=== PATIENT | female | born 1985 | race Caucasian/White ===

== ENCOUNTER 2016-09-15 02:15 | Inpatient (IN) | payer OTHER ==
[2016-09-15 03:10] LABS: Hematocrit 36 % (35-47); Hemoglobin 11.9 g/dl (12.0-16.0); Mean Corpuscular HGB Conc 33 g/dl (31-36); Mean Corpuscular Hemoglobin 29 pg (27-31); Mean Corpuscular Volume 86 fL (80-97); Mean Platelet Volume 11 um3 (7.4-10.4); Red Blood Count 4.15 10^6/ul (4.0-5.4); Red Cell Distribution Width 14 % (10.5-15); White Blood Count 19.3 10^3/ul (3.5-10.8)
[2016-09-15] MEDS ORDERED: OBEPIDURAL* 250 ML ONE (03:14)
[2016-09-15] MEDS ORDERED: fentaNYL* 50 MCG/ML 2 ML VIAL (100 MCG VIAL) ONE ×3 (03:24→09:29)
[2016-09-15] MEDS ORDERED: Famotidine TAB* 20 MG PO PRN (03:50)
[2016-09-15] MEDS ORDERED: Sodium Citrate/Citric Acid* 15 ML UDC PO PRN (03:50)
[2016-09-15] MEDS ORDERED: Phenylephrine IV* 40 MCG/ML 10 ML SYRINGE IV PUSH PRN ×2 (03:50)
[2016-09-15] MEDS ORDERED: Bupivacaine 0.25% SDV* 30 ML ONE (09:28)
[2016-09-15] MEDS ORDERED: Oxytocin in LR* 20 UNITS/1,000 ML BAG IVPB ONE (10:16)
[2016-09-15] MEDS ORDERED: oxyCODONE/Acetamin 5/325 MG* TAB PO PRN (10:40)
[2016-09-15] MEDS ORDERED: Witch Hazel PAD* JAR TOPICAL PRN (10:40)
[2016-09-15] MEDS ORDERED: Dibucaine 1% 28.35 GM TUBE PR PRN (10:40)
[2016-09-15] MEDS ORDERED: Oxytocin in LR* 20 UNITS/1,000 ML BAG IVPB SCH (11:00)
[2016-09-15] MEDS: OBEPIDURAL* 250 ML EPIDURAL SCH ×2 (12:16→12:20)
[2016-09-15] MEDS: Ibuprofen TAB* 600 MG PO PRN ×2 (14:46→20:37)
[2016-09-15] MEDS: Docusate CAP* 100 MG PO SCH ×2 (14:46→20:37)
[2016-09-16] MEDS: Acetaminophen TAB* 325 MG PO PRN ×2 (00:21→09:51)
[2016-09-16] MEDS: Ibuprofen TAB* 600 MG PO PRN (04:10)
[2016-09-16 07:58] VITALS: BP 120/69
[2016-09-16 08:16] LABS: Hematocrit 33 % (35-47); Hemoglobin 10.9 g/dl (12.0-16.0); Mean Corpuscular HGB Conc 34 g/dl (31-36); Mean Corpuscular Hemoglobin 30 pg (27-31); Mean Corpuscular Volume 88 fL (80-97); Mean Platelet Volume 11 um3 (7.4-10.4); Red Blood Count 3.69 10^6/ul (4.0-5.4); Red Cell Distribution Width 15 % (10.5-15); White Blood Count 14.4 10^3/ul (3.5-10.8)
[2016-09-16] MEDS ORDERED: Measles, Mumps,Rubella VACC* 0.5 ML/VIAL SUBCUT ONE (09:00)
[2016-09-16] MEDS ORDERED: Ferrous Gluconate TAB* 324 MG TAB PO SCH (09:00)
[2016-09-16] MEDS: Docusate CAP* 100 MG PO SCH (09:15)
== END 2016-09-16 11:49 | disposition home or self-care (01) | DRG 560 ==
LOC: MCHOBOUT 02:15 → MCHOB 02:49
PROVIDERS: ADMIT Obstetrics & Gynecology; ATTEND Obstetrics & Gynecology
PROC: 10E0XZZ Delivery of Products of Conception, External Approach (ICD-10-PCS; principal; 2016-09-15)
PROC: 10907ZC Drainage of Amniotic Fluid, Therapeutic from Products of Conception, Via Natural or Artificial Opening (ICD-10-PCS; 2016-09-15)
PROC: 4A1HXCZ Monitoring of Products of Conception, Cardiac Rate, External Approach (ICD-10-PCS; 2016-09-15)
DX: O99.334 Smoking (tobacco) complicating childbirth (principal); F17.210 Nicotine dependence, cigarettes, uncomplicated; Z3A.37 37 weeks gestation of pregnancy; Z37.0 Single live birth
CPT/HCPCS: 36415; 85025; 85027; 86850; 86900; 86901; A9270-GY; J3010

== ENCOUNTER 2017-01-29 14:29 | Emergency (ER) | payer OTHER ==
[2017-01-29 14:48] VITALS: BP 133/80
--- NOTE | 2017-01-29 15:06 | ED ---
Throat Pain/Nasal Congestion - HPI Summary HPI Summary: 31F presents with sore throat for a day. She has history of strept. She denies any SOB, chest pain, cough. She denies any fever. she is able to tolerate liquids. She denies any fatigue, abdominal pain, n/v. She denies any ear pain or sinus congestions. She has been taking Tylenol without relief. - History of Current Complaint Chief Complaint: UCRespiratory Time Seen by Provider: 01/29/17 14:49 - Allergies/Home Medications Allergies/Adverse Reactions: Allergies Allergy/AdvReac Type Severity Reaction Status Date / Time No Known Allergies Allergy Verified 01/29/17 14:48 PMH/Surg Hx/FS Hx/Imm Hx Endocrine/Hematology History: Reports: Hx Blood Disorders - low platelets during pregnancies Denies: Hx Diabetes, Hx Thyroid Disease Cardiovascular History: Denies: Hx Hypertension Respiratory History: Denies: Hx Asthma, Hx Chronic Obstructive Pulmonary Disease (COPD) GI History: Reports: Hx Gastroesophageal Reflux Disease - during Denies: Hx Ulcer - Surgical History Surgery Procedure, Year, and Place: wisdom teeth extraction Infectious Disease History: No Infectious Disease History: Denies: Hx Hepatitis, Hx Human Immunodeficiency Virus (HIV), Traveled Outside the [place] in Last 30 Days - Family History Known Family History: Positive: Hypertension - Social History Alcohol Use: None Hx Substance Use: No Substance Use Type: Reports: None Smoking Status (MU): Former Smoker Type: Cigarettes Have You Smoked in the Last Year: Yes Review of Systems Negative: Fever Positive: Sore Throat Negative: Chest Pain Negative: Shortness Of Breath Negative: Abdominal Pain All Other Systems Reviewed And Are Negative: Yes Physical Exam Triage Information Reviewed: Yes Vital Signs On Initial Exam: Initial Vitals Temp Pulse Resp BP Pulse Ox 98.7 F 94 18 133/80 99 01/29/17 14:45 01/29/17 14:45 01/29/17 14:45 01/29/17 14:45 01/29/17 14:45 Vital Signs Reviewed: Yes Appearance: Positive: Well-Appearing Skin: Positive: Warm, Dry Head/Face: Positive: Normal Head/Face Inspection Eyes: Positive: Normal, EOMI, JP, Conjunctiva Clear ENT: Positive: Pharyngeal erythema, TMs normal, Tonsillar swelling, Tonsillar exudate, Other - uvula midline, soft palate symmetric. Negative: Trismus, Muffled/hoarse voice Neck: Positive: Supple, Nontender, No Lymphadenopathy Respiratory/Lung Sounds: Positive: Clear to Auscultation, Breath Sounds Present Cardiovascular: Positive: Normal, RRR Abdomen Description: Positive: Nontender, Soft Bowel Sounds: Positive: Present Diagnostics - Vital Signs Vital Signs Temp Pulse Resp BP Pulse Ox 01/29/17 14:45 98.7 F 94 18 133/80 99 - Laboratory Lab Statement: Any lab studies that have been ordered have been reviewed, and results considered in the medical decision making process. EENT Course/Dx - Course Course Of Treatment: 31F presents with sore throat for a day. She has history of strept. She denies any SOB, chest pain, cough. She denies any fever. she is able to tolerate liquids. She denies any fatigue, abdominal pain, n/v. She denies any ear pain or sinus congestions. She has been taking Tylenol without relief. on exam tonsils +1 erythema and exudate, uvula midline, soft palate symmetric. strept pos. will treat with amoxicillin. reviewed blood pressure and told to follow up with primary as pre-htn range. patient understands and agrees with plan. - Differential Diagnoses Differential Diagnoses: Sinusitis, Tonsilitis, URI/Bronchitis - Diagnoses Provider Diagnoses: Streptococcal sore throat Discharge - Discharge Plan Condition: Good Disposition: HOME Prescriptions: Amoxicillin [Amoxicillin 250 MG/5 ML] 500 mg PO BID #200 ml Patient Education Materials: Strep Throat (ED) Forms: *Work Release Referrals: Loyd Champion MD [Primary Care Provider] - Additional Instructions: Take antibiotic twice a day for 10 days Take Tylenol or ibuprofen for pain/fever every 6 hours Can gargle salt water, use cough drops or products such as cloraseptic spray for pain Return to ED if develop difficulty breathing or unable to manage secretions, any new or worsening symptoms
== END 2017-01-29 15:15 | disposition home or self-care (01) ==
LOC: UCEAST 14:29
DX: J02.0 Streptococcal pharyngitis (principal); Z87.891 Personal history of nicotine dependence
CPT/HCPCS: 87651; 99212; G0463

== ENCOUNTER 2017-03-19 11:47 | Emergency (ER) | payer OTHER ==
[2017-03-19 12:04] VITALS: BP 137/83
--- NOTE | 2017-03-19 12:22 | UC ---
Dizzy HPI HPI Summary: Sensation of room spinning began last night does get nauseated - History Of Current Complaint Chief Complaint: UCDizziness Stated Complaint: DIZZINESS Time Seen by Provider: 03/19/17 12:20 Hx Obtained From: Patient Hx Last Menstrual Period: hasn't had since august - has implanon ?: No Onset/Duration: Sudden Onset, Lasting Days - 1 Timing: Intermittent Episode Lasting - --when she moved her head Severity Initially: Moderate Severity Currently: Moderate Character: Room Spinning Aggravating Factor(s): Change In Head Position Alleviating Factor(s): Rest, Lying Down, Closing Eyes Associated Signs And Symptoms: Positive: Nausea - Allergies/Home Medications Allergies/Adverse Reactions: Allergies Allergy/AdvReac Type Severity Reaction Status Date / Time No Known Allergies Allergy Verified 03/19/17 12:04 Home Medications: Home Medications Acetaminophen [Tylenol] 500 mg PO ONCE PRN 03/19/17 [History Confirmed 03/19/17] Topiramate 50 mg PO DAILY 03/19/17 [History Confirmed 03/19/17] PMH/Surg Hx/FS Hx/Imm Hx Previously Healthy: No Neurological History: Migraine - Surgical History Surgical History: Yes Surgery Procedure, Year, and Place: wisdom teeth extraction - Family History Known Family History: Positive: Hypertension - Social History Occupation: Employed Full-time Lives: With Family Alcohol Use: None Substance Use Type: None Smoking Status (MU): Former Smoker Type: Cigarettes Have You Smoked in the Last Year: Yes - Immunization History Most Recent Influenza Vaccination: unknown Most Recent Tetanus Shot: unknown Most Recent Pneumonia Vaccination: never Review of Systems Constitutional: Negative Skin: Negative Eyes: Negative ENT: Negative Respiratory: Negative Cardiovascular: Negative Gastrointestinal: Negative Genitourinary: Negative Motor: Negative Neurovascular: Negative Musculoskeletal: Negative Neurological: Negative Psychological: Negative Is Patient Immunocompromised?: No All Other Systems Reviewed And Are Negative: Yes Physical Exam Triage Information Reviewed: Yes Appearance: Well-Appearing, No Pain Distress, Well-Nourished Vital Signs: Initial Vital Signs Temp 97.2 F 03/19/17 11:53 Pulse 74 03/19/17 11:53 Resp 16 03/19/17 11:53 BP 137/83 03/19/17 11:53 Pulse Ox 98 03/19/17 11:53 Vital Signs Reviewed: Yes Eye Exam: Normal Eyes: Positive: Conjunctiva Clear ENT Exam: Normal ENT: Positive: Normal ENT inspection, Hearing grossly normal, Pharynx normal, TMs normal, Uvula midline. Negative: Nasal congestion, Nasal drainage, TM bulging, Tonsillar swelling, Tonsillar exudate, Hoarse voice, Dental tenderness , Sinus tenderness Dental Exam: Normal Neck exam: Normal Neck: Positive: Supple, Nontender, No Lymphadenopathy Respiratory Exam: Normal Respiratory: Positive: Chest non-tender, Lungs clear, Normal breath sounds, No respiratory distress, No accessory muscle use, Respiratory distress Cardiovascular Exam: Normal Cardiovascular: Positive: RRR, No Murmur, Pulses Normal, Brisk Capillary Refill Musculoskeletal Exam: Normal Musculoskeletal: Positive: Strength Intact, ROM Intact, No Edema Neurological Exam: Normal Neurological: Positive: Alert, Muscle Tone Normal, Fatigued Psychological Exam: Normal Skin Exam: Normal Dizzy Course/Dx - Course Course Of Treatment: Meclizine, ibuprofen, tylenol, increase fluids and rest follow with pcp - Differential Dx/Diagnosis Differential Diagnosis/HQI/PQRI: Benign Paroxysmal Positional Vertigo Provider Diagnoses: Vertigo (BPPV) Discharge - Discharge Plan Condition: Stable Disposition: HOME Prescriptions: Meclizine TAB* [Antivert 12.5 TAB*] 25 mg PO TID PRN #20 tab PRN Reason: vertigo Patient Education Materials: Vertigo (ED), Benign Paroxysmal Positional Vertigo (ED) Forms: *Work Release Referrals: Demar Jimenez MD [Primary Care Provider] - 1 Day
== END 2017-03-19 12:42 | disposition home or self-care (01) ==
LOC: UCEAST 11:47
DX: R42 Dizziness and giddiness (principal); Z87.891 Personal history of nicotine dependence
CPT/HCPCS: 99212; G0463

== ENCOUNTER 2018-03-28 07:22 | Inpatient (IN) | payer OTHER ==
[~2018-03-28 07:22] MED LIST: Buffered Lidocaine 0.9% SYRIN* 5 ML/SYR SYRINGE INTRADERM ONE; Dexamethasone IV* 4 MG/ML 1 ML (4 MG) IV SLOW PU ONE; Famotidine IV* 10 MG/ML 2 ML (20 mg) IV ONE; Scopolamine 1.5 mg* PATCH TRANSDERM ONE
--- OUTSIDE RECORDS SUMMARY | 2018-03-28 07:26 | XMS REPORT | Continuity of Care Document ---
:1985 External Reference #:[id number] Author Name Edilson Casey N.P. Address [address] [facility] [address] [place] [address] Care Team Providers Name Role Phone Demar Jimenez MD Care Team Information Imagery Analyst Unavailable Payers Type Date Identification Numbers Payment Provider Subscriber Policy Number: [id number] [facility] Sascha Nance PayID: [id number] [place] [address] Policy Number: [id number] Medicaid/[facility] Sascha Nance PayID: [id number] [address] [place] [address] Advance Directives Description No Information Available Problems Date Description Provider Status Onset: 08/07/2011 Refractory migraine with aura Demar Jimenez M.D. Active Onset: 08/07/2011 Headache Demar Jimenez M.D. Active Onset: 08/07/2011 Allergic rhinitis Demar Jimenez M.D. Active Onset: 08/07/2011 Malaise and fatigue Demar Jimenez M.D. Active Onset: 08/07/2011 Dizziness and giddiness Demar Jimenez M.D. Active Onset: 08/07/2011 Anxiety state Demar Jimenez M.D. Active Onset: 08/07/2011 Tobacco user Demar Jimenez M.D. Active Onset: 04/13/2012 Depressive disorder Demar Jimenez M.D. Active Onset: 11/18/2015 Obesity White, [place] [employer] Active Family History Date Family Member(s) Problem(s) Comments Father 52 Father Unknown Mother hypoglycemic Mother 50 Children 3 Siblings 1 Social History Type Date Description Comments Sex Unknown Marital Status Legal Status: Never ETOH Use Denies alcohol use Tobacco Use Start: Unknown Patient is a current less than a half a pack smoker, smokes every day Smoking Status Reviewed: 01/26/18 Patient is a current less than a half a pack smoker, smokes every day Allergies, Adverse Reactions, Alerts Date Description Reaction Status Severity Comments 02/26/2013 Ritalin Active 08/05/2011 NKDA Inactive Medications Medication Date Status Form Strength Qnty SIG Indications Ordering Provider Amoxicillin/C 03/19 Hx Tablets 875-125mg 30tab 1 tab by mouth J02.9 Tony, lavulanate s twice a day Ankit Poe - Ivy 04/02 Mucinex 03/19 Active Tablets ER 600mg 30tab 1 tab by mouth J02.9 Tony, 12HR s twice a day Demar Baird M.D. Benzonatate 03/19 Active Capsules 100mg 60cap 1 cap by mouth J02.9 Tony, s every 4 Demar Baird, hoursAT Night Bethanie.Aron Claritin 01/26 Active Capsules 10mg 30cap 1 by mouth Tony, s every day Demar Baird M.D. Azithromycin 01/26 Active Tablets 250mg 6tabs z bienvenido uad J02.9 Tony, Demar Baird M.D. Splint Wrist 10/03 Active Misc 1unit use as S63.501A Tony Brace/Left-Ri s directed Demar Baird ght/Reversibl Ivy e Ibuprofen 05/17 Active Tablets 800mg 90tab 1 by mouth M54.5 Tony, s three times a Demar Baird, day as needed Ivy Nexplanon 05/03 Active Implant 68mg use as Z30.40 Tony, directed by Demar Baird resident associate q3 M.DYeimy years Topiramate 12/01 Active Tablets 100mg 60tab tab one by G43.119 Tony, s mouth twice a Demar Baird, day M.D. Prednisone 10/03 Hx Tablets 20mg 18tab 3 tab by mouth S63.501A Tony, s daily 3 days, Demar Baird, - then 2 tab M.D. 10/12 daily x 3 d , then 1 tab daily 3d Prednisone 05/17 Hx Tablets 20mg 18tab 3 tab by mouth M54.5 Tony, s daily 3 days, Demar Baird, - then 2 tab M.D. 05/27 daily x 3 d , then 1 tab daily 3d Amoxicillin 05/03 Hx Suspension 400mg/5ML 200ml 7.5 J02.9 Tony Rec milliliters by Demar Baird, - mouth three M.D. 05/03 times a day Hydrocodone-A 05/03 Hx Tablets 10-325mg 60tab 1 tab by mouth J02.9 Tony, cet s three times a Demar Baird, - day as needed M.D. 05/13 Amoxicillin 05/03 Hx Chewtabs 250mg 4 tab by mouth J02.9 Tony, twice a day Demar Baird - M.D. 05/03 Amoxicillin 05/03 Hx Chewtabs 250mg 4 tab by mouth J02.9 Tony, twice a day Demar Baird - M.D. 05/13 Prednisone 01/30 Hx Tablets 20mg 18tab 3 tab by mouth J35.1 Tony, s daily 3 days, Demar Baird, - then 2 tab M.D. 02/17 daily x 3 d , then 1 tab daily 3d Solumedrol 01/30 Hx 125 Given Im Right J35.1 Tony, Gluteal Demar Baird - M.D. 01/31 Ceftriaxone 01/30 Hx Solution 1gm given J02.0 Tony, Rec intramuscular Demar Baird, - left gluteal M.D. 01/31 Topiramate 10/06 Hx Tablets 25mg 60tab take one G43.119 Tony s tablet by Demar Baird, - mouth at M.D. 12/01 bedtime week then by mouth twice a day Nicotine Step 10/06 Hx Patches 14mg/24HR 30uni 1 skin every F17.210 Tony, 24HR day Kellee Poe M.D. 05/01 Depo-Provera 10/05 Hx Suspension 150mg/ml 1ml 1 milliliters Z30.40 Tony injection Demar Baird - a1onpmcv M.DYeimy 05/01 No Active 02/24 Hx Unknown Medications /2015 - 02/24 /Omeg 02/24 Hx Capsules 28-0.8-53 90cap 1 by mouth Z33.1 Tony, a- 0mg s every day Demar Baird Acid/Iron - Ivy 09/29 Phentermine 11/17 Hx Capsules 30mg 30cap 1 by mouth E66.01 Tony, s every day Kellee Poe M.D. 02/24 F90.0 Topiramate 02/26/2013 - Hx Tablets 25mg 60tabs take one G43.119 Tony, 02/25/2016 tablet by sunil Poe at M.DYeimy bedtime x1 week then by mouth twice a day Amoxicillin 04/13/2012 - Hx Capsules 500mg 30caps 1 three 682.9 Tony, 04/23/2012 times a day Demar Baird, x 10 days M.DYeimy Concerta 12/14/2011 - Hx Tablets ER 54mg 30tabs 1 by mouth Tony, 04/13/2012 every day Demar Baird M.D. Adderall 12/13/2011 - Hx Tablets 20mg 60tabs 1 po bid Tony, 12/14/2011 Demar Baird M.D. Nicoderm CQ 12/13/2011 - Hx Patches 24HR 21mg/24 21units use as Tony, 04/13/2012 HR directed Demar Baird M.D. Amoxicillin - Hx Tablets 500mg 1 Two times J02.0 Unknown 02/08/2017 a day x10 day Per [facility] Care Medications Administered in Office Medication Date Status Form Strength Qnty SIG Indications Ordering Provider Intradermal Administered Injection Edilson Joyyaquelin 018 Casey, N.P. Solu-Medrol Administered Injection White, 125MG 017 [place] [employer] Rocephin 250 Administered Injection White, 017 [place] [employer] Intradermal Administered Injection White, Mantoux 017 [place] GENTILEP Immunizations CPT Code Status Date Vaccine Lot # [id number] Given 01/24/2018 Flu Vaccine [id number] Given 04/19/2017 Flu Vaccine [id number] Given 04/13/2012 Flu Vaccine [id number] Given 04/14/2011 Flu Vaccine Vital Signs Date Vital Result Comment 03/19/2018 1:14pm BP Systolic 110 mmHg BP Diastolic 70 mmHg Height 66 inches 5'6" Weight 276.00 lb BMI (Body Mass Index) 44.5 kg/m2 Heart Rate 95 /min Body Temperature 98.7 F Respiratory Rate 16 /min 01/26/2018 4:33pm BP Systolic 110 mmHg BP Diastolic 68 mmHg Height 66 inches 5'6" Weight 278.00 lb BMI (Body Mass Index) 44.9 kg/m2 Heart Rate 88 /min Body Temperature 98.6 F Respiratory Rate 18 /min 01/24/2018 2:11pm BP Systolic 116 mmHg BP Diastolic 72 mmHg Height 66 inches 5'6" Weight 278.00 lb BMI (Body Mass Index) 44.9 kg/m2 10/03/2017 4:08pm BP Systolic 110 mmHg BP Diastolic 74 mmHg Height 66 inches 5'6" Weight 269.00 lb BMI (Body Mass Index) 43.4 kg/m2 Heart Rate 59 /min Respiratory Rate 18 /min 09/06/2017 10:37am BP Systolic 110 mmHg BP Diastolic 64 mmHg Height 66 inches 5'6" Weight 268.00 lb BMI (Body Mass Index) 43.3 kg/m2 Heart Rate 82 /min Respiratory Rate 18 /min 05/17/2017 3:04pm BP Systolic 110 mmHg BP Diastolic 82 mmHg Height 66 inches 5'6" Weight 258.00 lb BMI (Body Mass Index) 41.6 kg/m2 Heart Rate 77 /min Respiratory Rate 18 /min 05/03/2017 2:40pm BP Systolic 110 mmHg BP Diastolic 72 mmHg Height 66 inches 5'6" Weight 259.00 lb BMI (Body Mass Index) 41.8 kg/m2 Heart Rate 76 /min Respiratory Rate 18 /min 02/01/2017 9:50am BP Systolic 108 mmHg BP Diastolic 62 mmHg Height 66 inches 5'6" Weight 253.00 lb BMI (Body Mass Index) 40.8 kg/m2 Heart Rate 78 /min Body Temperature 98.2 F Respiratory Rate 18 /min 01/30/2017 10:17am BP Systolic 118 mmHg BP Diastolic 70 mmHg Height 66 inches 5'6" Weight 253.00 lb BMI (Body Mass Index) 40.8 kg/m2 Heart Rate 99 /min Body Temperature 99.1 F Respiratory Rate 18 /min 12/07/2016 4:24pm BP Systolic 118 mmHg BP Diastolic 78 mmHg Height 66 inches 5'6" Weight 245.00 lb BMI (Body Mass Index) 39.5 kg/m2 Heart Rate 80 /min Respiratory Rate 16 /min 12/05/2016 4:15pm BP Systolic 108 mmHg BP Diastolic 70 mmHg Height 66 inches 5'6" Weight 245.00 lb BMI (Body Mass Index) 39.5 kg/m2 Heart Rate 79 /min Respiratory Rate 18 /min 12/01/2016 3:25pm BP Systolic 114 mmHg BP Diastolic 60 mmHg Height 66 inches 5'6" Weight 245.00 lb BMI (Body Mass Index) 39.5 kg/m2 Heart Rate 79 /min Respiratory Rate 16 /min 10/06/2016 2:57pm BP Systolic 100 mmHg BP Diastolic 62 mmHg Height 66 inches 5'6" Weight 241.00 lb BMI (Body Mass Index) 38.9 kg/m2 Heart Rate 99 /min Respiratory Rate 16 /min 02/25/2016 4:25pm BP Systolic 134 mmHg BP Diastolic 68 mmHg Height 66 inches 5'6" Weight 257.00 lb BMI (Body Mass Index) 41.5 kg/m2 Heart Rate 74 /min Respiratory Rate 20 /min 12/16/2015 3:59pm BP Systolic 130 mmHg BP Diastolic 72 mmHg Height 66 inches 5'6" Weight 258.00 lb BMI (Body Mass Index) 41.6 kg/m2 Heart Rate 78 /min Respiratory Rate 20 /min 12/02/2015 3:56pm BP Systolic 126 mmHg BP Diastolic 72 mmHg Height 66 inches 5'6" Weight 263.00 lb BMI (Body Mass Index) 42.4 kg/m2 Heart Rate 78 /min Respiratory Rate 20 /min 11/18/2015 3:57pm BP Systolic 122 mmHg BP Diastolic 74 mmHg Height 66 inches 5'6" Weight 267.00 lb BMI (Body Mass Index) 43.1 kg/m2 Heart Rate 76 /min Respiratory Rate 20 /min 03/13/2013 11:12am BP Systolic 118 mmHg BP Diastolic 78 mmHg Height 66 inches 5'6" Weight 230.00 lb BMI (Body Mass Index) 37.1 kg/m2 Heart Rate 93 /min Respiratory Rate 18 /min 02/26/2013 1:56pm BP Systolic 114 mmHg BP Diastolic 84 mmHg Height 66 inches 5'6" Weight 230.00 lb BMI (Body Mass Index) 37.1 kg/m2 Heart Rate 86 /min Body Temperature 97.7 F Respiratory Rate 20 /min 04/13/2012 11:39am BP Systolic 110 mmHg BP Diastolic 84 mmHg Height 66 inches 5'6" Weight 240.00 lb BMI (Body Mass Index) 38.7 kg/m2 Heart Rate 81 /min Respiratory Rate 16 /min 12/13/2011 10:12am BP Systolic 155 mmHg BP Diastolic 67 mmHg Height 66 inches 5'6" Weight 227.00 lb BMI (Body Mass Index) 36.6 kg/m2 Heart Rate 87 /min Last Menstrual Period 0 Respiratory Rate 14 /min Results Test Date Facility Test Result H/L Range Note Laboratory test 10/25/2017 [facility] Clotest SEE RESULT 1 finding BELOW Laboratory test 10/25/2017 [facility] Surgical SEE RESULT 2 finding Pathology BELOW Rubeola Measles 12/01/2016 [facility] Rubeola Positive 3 Igg AB (Measles) IgG Antibody Rubeola IgG Antibody Index 2.3 4 Laboratory test 12/01/2016 [facility] Rubella Screen Equivocal IU/mL Immune 5 finding Mumps Igg 12/01/2016 [facility] Mumps Virus IgG Positive 6 Antibody Mumps IgG Antibody Index 1.9 7 Hepatitis B Wang 12/01/2016 [facility] Hepatitis B Reactive Nonreactive AB Titer Surface AB Hep B Surf AB Level 39.12 mIU/mL <12 8 Varicella Zoster 12/01/2016 [facility] Varicella-Zoster IgG Positive 9 Igg AB Antibody Varicella IgG Antibody Index 4.0 10 CBC Auto Diff 12/01/2016 [facility] White Blood Count 6.9 10^3/uL 3.5-10.8 Red Blood Count 4.75 10^6/uL 4.0-5.4 Hemoglobin 13.6 g/dL 12.0-16.0 Hematocrit 42 % 35-47 Mean Corpuscular Volume 88 fL 80-97 Mean Corpuscular Hemoglobin 29 pg 27-31 Mean Corpuscular HGB Conc 33 g/dL 31-36 Red Cell Distribution Width 15 % 10.5-15 Platelet Count 158 10^3/uL 150-450 Mean Platelet Volume 10 um3 7.4-10.4 Abs Neutrophils 3.7 10^3/uL 1.5-7.7 Abs Lymphocytes 2.7 10^3/uL 1.0-4.8 Abs Monocytes 0.3 10^3/uL 0-0.8 Abs Eosinophils 0.1 10^3/uL 0-0.6 Abs Basophils 0.1 10^3/uL 0-0.2 Abs Nucleated RBC 0.01 10^3/uL Granulocyte % 53.7 % 38-83 Lymphocyte % 39.9 % 25-47 Monocyte % 4.8 % 1-9 Eosinophil % 0.8 % 0-6 Basophil % 0.8 % 0-2 Nucleated Red Blood Cells % 0.1 Comp Metabolic Panel 12/01/2016 [facility] Sodium 138 mmol/L 133- 145 Potassium 3.6 mmol/L 3.5-5.0 Chloride 110 mmol/L 101-111 Co2 Carbon Dioxide 21 mmol/L Low 22-32 Anion Gap 7 mmol/L 2-11 Glucose 78 mg/dL 70-100 Blood Urea Nitrogen 12 mg/dL 6-24 Creatinine 0.99 mg/dL High 0.51-0.95 BUN/Creatinine Ratio 12.1 8-20 Calcium 9.4 mg/dL 8.6-10.3 Total Protein 6.8 g/dL 6.4-8.9 Albumin 4.0 g/dL 3.2-5.2 Globulin 2.8 g/dL 2-4 Albumin/Globulin Ratio 1.4 1-3 Total Bilirubin 0.40 mg/dL 0.2-1.0 Alkaline Phosphatase 44 U/L 34-104 Alt 16 U/L 7-52 Ast 17 U/L 13-39 Egfr Non- 65.0 >60 Egfr 83.6 >60 11 Laboratory test 12/01/2016 [facility] TSH (Thyroid 1.23 mcIU/mL 0.34 -5.60 12 finding Stim Horm) Hemoglobin A1c (Glyco HGB) 5.1 % Less than 6.0 13 Lipid Profile (Trig/Chol/HDL) 12/01/2016 [facility] Triglycerides 93 mg /dL 14 Cholesterol 159 mg/dL 15 HDL Cholesterol 40.9 mg/dL 16 LDL Cholesterol 100 mg/dL 17 CMP 11/18/2015 [facility] Sodium 145 mmol/L (136-145) [address] KA[address] STEWART (607)- - Potassium 3.6 mmol/L (3.6-5.2) Chloride 111 mmol/L High (100-108) Co2 25 mmol/L (22-31) Anion Gap 9 mmol/L (7-16) Urea Nitrogen 9 mg/dL (7-24) Creatinine 0.83 mg/dL (0.60-1.00) BUN/Creat Ratio 10.8 RATIO (10.0-20.0) Glucose 104 mg/dL High (70-99) Calcium 8.7 mg/dL (8.4-10.2) Total Protein 7.3 g/dL (6.4-8.2) Albumin 3.8 g/dL (3.5-4.6) Globulin 3.5 g/dL (2.7-4.3) Alb/Glob Ratio 1.1 RATIO Alkaline Phosphatase 72 U/L (45-117) Bilirubin,Total 0.3 mg/dL (0.0-1.0) Ast (Sgot) 12 U/L (11-39) Alt (SGPT) 23 U/L (12-78) GFR >60 ml/min/1.73m2 (>59) GFR ( Amer) >60 ml/min/1.73m2 (>59) GFR Interpretation <SEE NOTE> 18 CBC With Diff 11/18/2015 [facility] WBC 6.1 10*3/uL (4.1-11.0) 113 KAIA TERRY (607)- - RBC 5.35 10*6/uL (4.00-5.40) HGB 14.9 g/dL (12.0-16.0) HCT 45.9 % (36.0-47.0) MCV 85.8 fL (80.0-95.0) MCH 27.8 pg (27.0-32.0) MCHC 32.4 g/dL (32.0-36.0) RDW 13.9 % (10.5-14.5) PLT 145 10*3/uL Low (150-450) MPV 10.8 fL High (7.1-10.7) Neut % 50.6 % (35.0-75.0) Lymph % 43.1 % (16.0-52.0) [place] % 5.3 % (0.0-8.0) Eos % 0.9 % (0.0-5.0) Baso % 0.1 % (0.0-4.0) Neut # 3.1 10*3/uL (1.8-7.7) Lymph # 2.6 10*3/uL (1.2-4.8) [place] # 0.3 10*3/uL (0.0-0.8) Eos # 0.1 10*3/uL (0.0-0.5) Baso # 0.0 10*3/uL (0.0-0.2) Laboratory 11/18/2015 [facility] TSH,Ultrasensitive @ 0.911 (0.360- 4.170) test finding 113 IN[employer]OV[facility] TERRY mIU/L (607)- - Basic 03/13/2013 [facility] Glucose 76 mg/dL 76-115 Metabolic Panel BUN 11 mg/dL 5-23 Creatinine 0.9 mg/dL 0.5-1.4 Glom Filtration Rate, Estimate >60 mL/min >60 If >60 mL/min >60 19 BUN/Creat 12.2 ratio Sodium 138 mmol/L 136-145 Potassium 3.9 mmol/L 3.5-5.1 Chloride 104 mmol/L 98-107 Carbon Dioxide 25 mEq/L 18-29 Anion Gap 13 mEq/L 8-16 Calcium 8.8 mg/dL 8.5-10.1 CBC W/Automated Diff 03/13/2013 [facility] White Blood Count 8.6 K/uL 3.1- 10.7 Red Blood Count 4.92 M/uL 3.90-5.40 Hemoglobin 15.2 gm/dL 11.6-15.8 Hematocrit 45.6 % 36.0-46.1 Mean Cell Volume 92.7 fl 80.9-99.0 Mean Corpuscular HGB 30.9 pg 25.9-32.7 Mean Corpuscular HGB Conc 33.3 g/dL 30.8-34.3 Platelet Count 145 K/uL Low 155-360 Red Cell Distri Width SD 42.4 fl 3-47 Red Cell Distri Width %CV 12.8 % 11.7-14.4 Mean Platelet Volume 13.5 fL High 8.9-12.4 Neut% 62.0 % 40.4-72.8 Lymph % 31.2 % 17.0-46.1 [place] % 5.8 % 4.3-13.2 Eo% 0.8 % 0.0-6.6 Bas% 0.2 % 0.0-1.1 Neut# 5.33 K/uL 1.0-7.0 Lymph # 2.69 K/uL 0.8-3.4 [place] # 0.50 K/uL 0.3-0.9 Eos # 0.07 K/uL 0.0-0.5 Baso # 0.02 K/uL 0.0-0.1 Laboratory test 03/13/2013 [facility] C-Reactive 5.07 mg/L High 0.00-3.00 20 finding Protein,Cardiac Sedimentation Rate 3 mm/hr 0-20 LDL Cholesterol Profile 03/13/2013 [facility] Cholesterol 145 mg/dL 120- 200 Triglycerides 65 mg/dL 16-231 HDL Cholesterol 42 mg/dL 29-83 LDL-Cholesterol 90 mg/dL 62-185 Liver Function Tests 03/13/2013 [facility] Total Protein 7.5 g/dL 6.3-8.0 Albumin 4.0 g/dL 3.5-5.0 Globulin 3.5 g/dL 1.9-4.3 Alb/Glob 1.1 ratio Bilirubin,Total 0.5 mg/dL 0.2-1.2 Bilirubin,Direct < 0.1 mg/dL Low 0.1-0.4 Bilirubin,Indirect 0.4 mg/dL 0.0-0.9 Sgot/Ast 10 U/L Low 16-40 SGPT/Alt 21 U/L Low 30-65 Alkaline Phosphatase 73 U/L 50-136 Laboratory test 03/13/2013 [facility] Thyroid Stim 1.13 uIU/mL 0.49-4.67 finding Hormone Vitamin D,25-Hydroxy 26.4 ng/mL Low 30.0-100.0 21 1 SEE RESULT BELOW Name: SASCHA NANCE : [address]: Robert Garcia MD Acct: [id number] Unit: [id number] AGE: 32 Location: ENDO Re10/25/17 SEX: F Status: REG REF SPEC: [id number] [place]: 10/25/17-[address] [facility] [address]: Robert Garcia MD REQ: [id number] RECD: 10/25/17123 STATUS: LALA MELENDREZ DR: Demar Jimenez MD _ SOURCE: GAS ANTRUM SPDESC: ORDERED: Clotest Procedure Result Reported Site Clotest Final 10/25/17- 1300 ML Clotest Positive * ML - Main Lab . END OF REPORT DEPARTMENT OF PATHOLOGY, [address] [place] [address] Brody Fabian M.D. Director [facility] # [id number] 2 SEE RESULT BELOW Name: SASCHA NANCE : [address]: Robert Garcia MD Acct: [id number] Unit: [id number] AGE: 32 Location: ENDO Re10/25/17 SEX: F Status: REG REF SPEC: [id number] [place]: 10/25/1735 [facility] [address]: Robert Garcia MD REQ: [id number] RECD: 10/25/17114 STATUS: WILDA MELENDREZ DR: Demar Garcia MD _ ORDERED: LEVEL 4, IMMUNO-FIRST An H. pylori immunohistochemical stain, with appropriately reacting controls , was performed and is POSITIVE for Helicobacter organisms. Addendum Signed (signature on file) Nury Cruz MD 1349 FINAL DIAGNOSIS Stomach, greater curvature, biopsy: -- Gastric oxyntic gland mucosa with mild to moderate diffuse superficial chronic inflammation. -- No active gastritis nor Helicobacter pylori-like organisms identified on H E microscopy. Comment: An immunohistochemical stain for Helicobacter pylori-like organisms is pending and will be reported in an addendum. CLINICAL HISTORY Prebariatric; no dyspepsia; no peptic meds POST-OPERATIVE DIAGNOSIS EGD: larynx ? normal, small; esophagus ? esophagogastric junction 37-37.5 cm , small sliding hiatal hernia, minimal erosion; stomach ? normal, reticulated body, fundus and cardia ? normal; duodenum ? normal; conclusion: small hiatal hernia; mild gastroesophageal reflux disease; gastritis GROSS DESCRIPTION The specimen is received in formalin labeled, Biopsy Gastric Greater Curvature, and consists of two koehler-pink irregular soft tissue fragments averaging 0.6 x 0.2 x 0.1 cm which are submitted entirely in one cassette. CONTINUED ON NEXT PAGE DEPARTMENT OF PATHOLOGY, [address] [place] [address] Brody Fabian M.D. Director [facility] # [id number] RUN DATE: 10/27/17 [facility] LAB LIVE PAGE 2 Patient: SASCHA NANCE [id number] (Continued) GROSS JESSICA (Continued) Signed by and Reported on: Brody Fabian MD 1158 END OF REPORT DEPARTMENT OF PATHOLOGY, [address] [place] [address] Brody Fabian M.D. Director [facility] # [id number] 3 Results suggest response to immunization or prior exposure to the virus. REFERENCE VALUE Vaccinated: Positive (>=1.1 AI) Unvaccinated: Negative (<=0.8 AI) 4 Test Performed by: [address] [id number] 5 [id number] Results suggest response to immunization or prior exposure to the virus. REFERENCE VALUE Vaccinated: Positive (>=1.1 AI) Unvaccinated: Negative (<=0.8 AI) 7 Test Performed by: [facility] - [address] [address] 8 This assay does not differentiate between reactivity due to a vaccine-induced immune response or an immune response induced by infection with HBV. 9 Results suggest response to immunization or prior exposure to the virus. REFERENCE VALUE Vaccinated: Positive (>=1.1 AI) Unvaccinated: Negative (<=0.8 AI) 10 Test Performed by: [facility] - [address] [address] 11 Because ethnic data is not always readily available, this report includes an eGFR for both -Americans and non- Americans. The National Kidney Disease Education Program (NKDEP) does not endorse the use of the MDRD equation for patients that are not between the ages of 18 and 70, are , have extremes of body size, muscle mass, or nutritional status, or are non- or non-. According to the National Kidney Foundation, irrespective of diagnosis, the stage of the disease is based on the level of kidney function: Stage Description GFR(mL/min/1.73 m(2)) 1 Kidney damage with normal or decreased GFR 90 2 Kidney damage with mild decrease in GFR 60-89 3 Moderate decrease in GFR 30-59 4 Severe decrease in GFR 15-29 5 Kidney failure <15 (or dialysis) 12 [id number] 13 Therapeutic target for the treatment of diabetes Mellitus patients is <7% HBA1C, and in selective patients <6.0%.Please refer to [place] [employer] Association Diabetic care guidelines for further information. 14 Desirable <150 Borderline high 150-199 High 200-499 Very High >500 15 Desirable <200 Borderline high 200-239 High >239 16 Low <40 Desirable: 40-60 High: >60 17 Desirable: <100 mg/dL Near Optimal: 100-129 mg/dL Borderline High: 130-159 mg/dL High: 160-189 mg/dL Very High: >189 mg/dL 18 NORMAL KIDNEY FUNCTION OR MILD DISEASE - GFR >OR=60 CHRONIC KIDNEY DISEASE - GFR 15 - 59 RENAL FAILURE - GFR <15 Est. GFR calculation based on the MDRD study equation, which assumes a steady state for creatinine. Est. GFR should not be used for medication dosing. 19 Note: Persistent reduction for 3 months or more in an eGFR <60 mL/min/1.73 m2 defines CKD. Patients with eGFR values >/=60 mL/min/1.73 m2 may also have CKD if evidence of persistent proteinuria is present. The original MDRD equation for estimated GFR is not valid for patients less than 18 years of age. Additional information may be found at www.kdoqi.org. 20 Relative Risk for Future Cardiovascular Event Low <1.00 Average 1.00 - 3.00 High >3.00 21 Vitamin D deficiency has been defined by the [place] of [employer] and an Endocrine Society practice guideline as a level of serum 25-OH vitamin D less than 20 ng/mL (1,2). The Endocrine Society went on to further define vitamin D insufficiency as a level between 21 and 29 ng/mL (2). 1. IOM ([place] of [employer]). 2010. Dietary reference intakes for calcium and D. [place]: The National Academies Press. 2. Mark MF, Kathy NC, Marquis PARKER, et al. Evaluation, treatment, and prevention of vitamin D deficiency: an Endocrine Society clinical practice guideline. JCEM. 2010; 96(7):1911-30. 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, predom inattentive type L20.9 Atopic dermatitis, unspecified J30.9 Allergic rhinitis, unspecified F17.210 Nicotine dependence, cigarettes, uncomplicated J44.9 Chronic obstructive pulmonary disease, unspecified G43.119 Migraine with aura, intractable, without status migrainosus J35.3 Hypertrophy of tonsils with hypertrophy of adenoids M54.5 Low back pain M25.531 Pain in right wrist H66.93 Otitis media, unspecified, bilateral J02.9 Acute pharyngitis, unspecified F41.9 Anxiety disorder, unspecified F33.9 Major depressive disorder, recurrent, unspecified Office Visit 01/26/2018 4:00p [facility] Edilson Casey, Z11.1 Encounter for N.P. screening for respiratory tuberculosis F41.9 Anxiety disorder, unspecified F33.9 Major depressive disorder, recurrent, unspecified F90.0 Attn-defct hyperactivity disorder, predom inattentive type L20.9 Atopic dermatitis, unspecified J30.9 Allergic rhinitis, unspecified F17.210 Nicotine dependence, cigarettes, uncomplicated J44.9 Chronic obstructive pulmonary disease, unspecified G43.119 Migraine with aura, intractable, without status migrainosus J35.3 Hypertrophy of tonsils with hypertrophy of adenoids M54.5 Low back pain M25.531 Pain in right wrist H66.93 Otitis media, unspecified, bilateral J02.9 Acute pharyngitis, unspecified Office Visit 01/24/2018 2:15p [facility] Edilson Casey, F41.9 Anxiety disorder, N.P. unspecified F33.9 Major depressive disorder, recurrent, unspecified F90.0 Attn-defct hyperactivity disorder, predom inattentive type L20.9 Atopic dermatitis, unspecified J30.9 Allergic rhinitis, unspecified F17.210 Nicotine dependence, cigarettes, uncomplicated J44.9 Chronic obstructive pulmonary disease, unspecified G43.119 Migraine with aura, intractable, without status migrainosus Z30.40 Encounter for surveillance of contraceptives, unspecified J35.3 Hypertrophy of tonsils with hypertrophy of adenoids M54.5 Low back pain M25.531 Pain in right wrist S63.501A Unspecified sprain of right wrist, initial encounter Z00.01 Encounter for general adult medical exam w abnormal findings Z23 Encounter for immunization Z11.1 Encounter for screening for respiratory tuberculosis Z68.41 Body mass index (BMI) 40.0-44.9, adult Office Visit 10/03/2017 4:00p [facility] Demar Jimenez1.Medardo Anxiety disorderBrie M.D. unspecified F33.9 Major depressive disorder, recurrent, unspecified F90.0 Attn-defct hyperactivity disorder, predom inattentive type L20.9 Atopic dermatitis, unspecified J30.9 Allergic rhinitis, unspecified F17.210 Nicotine dependence, cigarettes, uncomplicated J44.9 Chronic obstructive pulmonary disease, unspecified G43.119 Migraine with aura, intractable, without status migrainosus Z30.40 Encounter for surveillance of contraceptives, unspecified J35.3 Hypertrophy of tonsils with hypertrophy of adenoids M54.5 Low back pain M25.531 Pain in right wrist S63.501A Unspecified sprain of right wrist, initial encounter Z68.41 Body mass index (BMI) 40.0-44.9, adult Office Visit 09/06/2017 10:30a [facility] Demar Jimenez F41.Medardo Anxiety disorderBrie M.D. unspecified F33.9 Major depressive disorder, recurrent, unspecified F90.0 Attn-defct hyperactivity disorder, predom inattentive type L20.9 Atopic dermatitis, unspecified J30.9 Allergic rhinitis, unspecified F17.210 Nicotine dependence, cigarettes, uncomplicated J44.9 Chronic obstructive pulmonary disease, unspecified G43.119 Migraine with aura, intractable, without status migrainosus Z30.40 Encounter for surveillance of contraceptives, unspecified J35.3 Hypertrophy of tonsils with hypertrophy of adenoids M54.5 Low back pain Z68.41 Body mass index (BMI) 40.0-44.9, adult Office Visit 05/17/2017 3:15p [facility] Demar Jimenez F41.Medardo Anxiety Brie brown M.D. unspecified F33.9 Major depressive disorder, recurrent, unspecified F90.0 Attn-defct hyperactivity disorder, predom inattentive type L20.9 Atopic dermatitis, unspecified J30.9 Allergic rhinitis, unspecified F17.210 Nicotine dependence, cigarettes, uncomplicated J44.9 Chronic obstructive pulmonary disease, unspecified G43.119 Migraine with aura, intractable, without status migrainosus Z30.40 Encounter for surveillance of contraceptives, unspecified J35.3 Hypertrophy of tonsils with hypertrophy of adenoids J02.9 Acute pharyngitis, unspecified H92.03 Otalgia, bilateral M54.5 Low back pain Office Visit 05/03/2017 2:45p [place] [facility] TonyCalebserjio F41.9 Anxiety disorder, M., M.D. unspecified F33.9 Major depressive disorder, recurrent, unspecified F90.0 Attn-defct hyperactivity disorder, predom inattentive type L20.9 Atopic dermatitis, unspecified J30.9 Allergic rhinitis, unspecified F17.210 Nicotine dependence, cigarettes, uncomplicated J44.9 Chronic obstructive pulmonary disease, unspecified G43.119 Migraine with aura, intractable, without status migrainosus J02.9 Acute pharyngitis, unspecified J35.3 Hypertrophy of tonsils with hypertrophy of adenoids H92.03 Otalgia, bilateral Z30.40 Encounter for surveillance of contraceptives, unspecified Office Visit 04/19/2017 3:30p [facility] Dakota Modi Z23 Encounter for [employer] immunization F17.210 Nicotine dependence, cigarettes, uncomplicated G43.119 Migraine with aura, intractable, without status migrainosus Office Visit 02/01/2017 9:45a [facility] Dakota Modi J35.3 Hypertrophy of [employer] tonsils with hypertrophy of adenoids D23.9 Other benign neoplasm of skin, unspecified Office Visit 01/30/2017 10:30a [facility] Dakota Modi J02.0 Streptococcal [employer] pharyngitis J35.1 Hypertrophy of tonsils R13.10 Dysphagia, unspecified Office Visit 12/07/2016 4:15p [facility] Dakota Modi [employer] E66.01 Morbid (severe) obesity due to excess calories Z11.1 Encounter for screening for respiratory tuberculosis F17.210 Nicotine dependence, cigarettes, uncomplicated Office Visit 12/01/2016 3:15p [facility] [facility] Dakota Modi Z00.01 Encounter for [employer] general adult medical exam w abnormal findings G43.119 Migraine with aura, intractable, without status migrainosus F41.9 Anxiety disorder, unspecified F17.210 Nicotine dependence, cigarettes, uncomplicated Office Visit 10/06/2016 2:30p [facility] [facility] Demar Jimenez G43.119 Migraine with aura, Fili Baird. intractable, without status migrainosus F41.9 Anxiety disorder, unspecified F33.9 Major depressive disorder, recurrent, unspecified F17.210 Nicotine dependence, cigarettes, uncomplicated L20.9 Atopic dermatitis, unspecified J30.9 Allergic rhinitis, unspecified E66.01 Morbid (severe) obesity due to excess calories F90.0 Attn-defct hyperactivity disorder, predom inattentive type Z30.42 Encounter for surveillance of injectable contraceptive Office Visit 02/25/2016 4:45p [facility] TonyDemar rodriges G43.119 Migraine with aura, Fili Baird. intractable, without status migrainosus F41.9 Anxiety disorder, unspecified F33.9 Major depressive disorder, recurrent, unspecified F17.210 Nicotine dependence, cigarettes, uncomplicated L20.9 Atopic dermatitis, unspecified J30.9 Allergic rhinitis, unspecified E66.01 Morbid (severe) obesity due to excess calories F90.0 Attn-defct hyperactivity disorder, predom inattentive type Z33.1 state, incidental Office Visit 12/16/2015 4:00p [place] [facility] Dakota Modi G43.119 Migraine with aura, [employer] intractable, without status migrainosus F17.200 Nicotine dependence, unspecified, uncomplicated E66.09 Other obesity due to excess calories Office Visit 12/02/2015 4:00p [facility] [facility] Dakota Modi G43.119 Migraine with aura, [employer] intractable, without status migrainosus F17.200 Nicotine dependence, unspecified, uncomplicated E66.09 Other obesity due to excess calories R53.83 Other fatigue Office Visit 11/18/2015 4:00p [facility] [facility] Dakota Modi G43.119 Migraine with aura, [employer] intractable, without status migrainosus F17.200 Nicotine dependence, unspecified, uncomplicated E66.09 Other obesity due to excess calories R53.83 Other fatigue Office Visit 03/13/2013 11:15a [facility] [facility] Sidney, 314.00 Attention Deficit Terese, [employer] Disorder W/O Mention Of Hyperactivity 311 Depressive Disorder Not Elsewhere Spec 300.00 Anxiety State Unspec 784.0 Headache 346.01 Migraine Classical W/Intractable W/O Status Migrainosus 305.1 Tobacco Use Disorder 278.02 Overweight V85.37 Body Mass Index 37.0-37.9 Adult 780.79 Malaise And Fatigue Other Office Visit 02/26/2013 2:00p [facility] Isdney, 314.00 Attention Deficit Terese, [employer] Disorder W/O Mention Of Hyperactivity 311 Depressive Disorder Not Elsewhere Spec 300.00 Anxiety State Unspec 784.0 Headache 346.01 Migraine Classical W/Intractable W/O Status Migrainosus 305.1 Tobacco Use Disorder 278.02 Overweight Office Visit 04/13/2012 11:45a [facility] [facility] Demar Jimenez 682.9 Cellulitis & M., M.D. Abscess Unspec Site V04.81 Need For Prophylactic Vaccination & Inoculation/Influenza 305.1 Tobacco Use Disorder 346.01 Migraine Classical W/Intractable W/O Status Migrainosus 784.0 Headache 300.00 Anxiety State Unspec 311 Depressive Disorder Not Elsewhere Spec Office Visit 12/13/2011 [place] Marianne Chase [employer] 314.00 Attention Deficit 10:00a Office Disorder W/O Mention Of Hyperactivity 311 Depressive Disorder Not Elsewhere Spec 305.1 Tobacco Use Disorder 278.02 Overweight V85.36 Body Mass Index 36.0-36.9, Adult Office Visit 04/14/2011 4:30p [facility] [facility] Demar Jimenez 346.01 Migraine Classical M., M.D. W/Intractable W/O Status Migrainosus 784.0 Headache 477.8 Rhinitis Allergic Due To Other Allergen 780.79 Malaise And Fatigue Other V04.81 Need For Prophylactic Vaccination & Inoculation/Influenza Office Visit 04/05/2011 10:00a [place] [facility] Demar Jimenez, 381.04 Otitis Media M.D. Allergic Serous Acute 784.0 Headache 356.4 Polyneuropathy Idiopathic Progress 780.4 Dizziness & Giddiness Office Visit 09/14/2010 2:30p [place] [facility] Demar Jimenez, 382.9 Otitis Media M.D. Unspec 462 Pharyngitis Acute 461.8 Sinusitis Acute Other 780.4 Dizziness & Giddiness Office Visit 04/07/2009 3:30p [facility] Demar Jimenez, 780.79 Malaise And M.D. Fatigue Other 847.0 Sprains & Strains Neck 300.00 Anxiety State Unspec 305.1 Tobacco Use Disorder Plan of Treatment Future Appointment(s):03/27/2018 2:30 pm - Demar Jimenez M.D. at [facility]
[2018-03-28] MEDS ORDERED: ceFAZolin 2 GM PREMIX in ORs 0 GM/0 ML BAG IVPB ONE (07:44)
[2018-03-28] MEDS ORDERED: Dexamethasone IV* 4 MG/ML 1 ML (4 MG) ONE (07:44)
[2018-03-28] MEDS ORDERED: Heparin VIAL(*) 5000 UNITS/ML VIAL (FIVE THOUSAND) ONE (07:44)
[2018-03-28] MEDS ORDERED: Famotidine IV* 10 MG/ML 2 ML (20 mg) ONE (07:44)
[2018-03-28] MEDS ORDERED: Scopolamine 1.5 mg* PATCH ONE (07:44)
[2018-03-28] MEDS ORDERED: ceFAZolin 1 GM ADVAN(*) 1 GM ADDV.VIAL IVPB ONE (07:45)
[2018-03-28] MEDS ORDERED: Rocuronium* 10 MG/ML VIAL ONE ×2 (08:37→10:46)
[2018-03-28] MEDS ORDERED: Propofol* 10 MG/ML 20 ML BTL ONE (08:37)
[2018-03-28] MEDS ORDERED: Lidocaine 2% PF * 5 ML VIAL ONE (08:37)
[2018-03-28] MEDS ORDERED: Bupivacaine 0.25% EPI 200,000* 30 ML SDV ONE ×2 (08:55→09:46)
[2018-03-28] MEDS ORDERED: Methylene Blue 0.5 %* 50 MG/10 ML AMP IV ONE (08:55)
[2018-03-28] MEDS ORDERED: fentaNYL* 50 MCG/ML 5 ML VIAL (250 MCG VIAL) ONE (09:01)
[2018-03-28] MEDS ORDERED: Midazolam* 1 MG/ML 5 ML VIAL (5 MG) ONE (09:02)
[2018-03-28] MEDS ORDERED: Acetaminophen IV 1GM/100ML * 1,000 MG/100 ML VIAL IVPB ONE (09:20)
[2018-03-28] MEDS ORDERED: Naloxone* 0.4 MG/ML 1 ML VIAL IV PRN (09:20)
[2018-03-28] MEDS ORDERED: fentaNYL* 50 MCG/ML 2 ML VIAL (100 MCG VIAL) ONE ×5 (10:57→16:19)
[2018-03-28] MEDS ORDERED: ceFAZolin 2 GM PREMIX in ORs 2 GM/50 ML BAG IVPB ONE (13:29)
[2018-03-28] MEDS ORDERED: ceFAZolin 1 GM in Dextrose (*) 1 GM/50 ML BAG IVPB ONE (13:32)
[2018-03-28] MEDS ORDERED: Ondansetron INJ* 2 MG/ML VIAL ONE ×2 (13:41→14:30)
[2018-03-28] MEDS ORDERED: Sugammadex * 200 MG/2 ML VIAL IV PUSH ONE (13:44)
[2018-03-28] MEDS ORDERED: Ketorolac INJ* 30 MG/ML 1 ML VIAL ONE (13:49)
--- NOTE | 2018-03-28 14:00 | OP ---
Operative Report - Blank - Operative Report Date of Operation: 03/28/18 Note: Brief Operative Note Preop Dx: Morbid obesity & Cholelithiasis Postop Dx: Same Procedure: Laparoscopic Darlin-En-Y Gastric Bypass and Laparoscopic Cholecystectomy Anesthesia: GET Surgeon: Dr. Garcia Operations Specialist: Nicola Horn PAS Fluids: 2200 EBL: 50 cc Specimen: Gall bladder Drains: None Findings: dictated
[2018-03-28] MEDS ORDERED: Acetaminophen ADULT LIQ* 650 MG/20.3 ML UDC PO PRN (14:01)
[2018-03-28] MEDS ORDERED: Ondansetron INJ* 2 MG/ML VIAL IV PRN (14:01)
[2018-03-28] MEDS ORDERED: PROCHLORPERAZINE INJ 5 MG/ML 2 ML VIAL ONE ×2 (14:30→14:58)
[2018-03-28] MEDS: PROCHLORPERAZINE INJ 5 MG/ML 2 ML VIAL IV PRN ×2 (14:31→14:59)
[2018-03-28] MEDS: fentaNYL* 50 MCG/ML 2 ML VIAL (100 MCG VIAL) IV PRN ×3 (14:34→16:20)
[2018-03-28] MEDS: HYDROmorphone INJ1* 1 MG/ML SYRINGE IV PRN ×2 (18:28→22:47)
[2018-03-28] MEDS: Heparin VIAL(*) 5000 UNITS/ML VIAL (FIVE THOUSAND) SUBCUT SCH (21:40)
[2018-03-28] MEDS: Famotidine IV* 10 MG/ML 2 ML (20 mg) IV SLOW PU SCH (21:41)
[2018-03-29] MEDS: HYDROmorphone INJ1* 1 MG/ML SYRINGE IV PRN ×2 (04:08→08:40)
[2018-03-29] MEDS: Heparin VIAL(*) 5000 UNITS/ML VIAL (FIVE THOUSAND) SUBCUT SCH ×3 (06:09→21:25)
[2018-03-29] MEDS: Ketorolac INJ* 30 MG/ML 1 ML VIAL IV PRN ×3 (07:33→23:35)
[2018-03-29] MEDS: Famotidine IV* 10 MG/ML 2 ML (20 mg) IV SLOW PU SCH ×2 (08:35→21:16)
--- NOTE | 2018-03-29 09:40 | PN ---
Progress Note - Progress Note Date of Service: 03/29/18 Note: S: POD #1. Some nausea (alexandr after UGI); no vomiting. Pain controlled. Ambulating. O: Vital Signs - 8 hr 03/29/18 03/29/18 03/29/18 04:05 04:08 07:23 Temperature 99.0 F 98.7 F Pulse Rate 84 80 Respiratory 16 16 16 Rate Blood Pressure 114/65 107/62 (mmHg) O2 Sat by Pulse 98 98 Oximetry 03/29/18 03/29/18 07:30 08:40 Temperature Pulse Rate Respiratory 16 18 Rate Blood Pressure (mmHg) O2 Sat by Pulse Oximetry Intake and Output Last 24 Hours 03/27/18 03/28/18 03/29/18 03/30/18 06:59 06:59 06:59 06:59 Intake Total 4360 Output Total 1475 Balance 2885 Weight 267 lb Intake: IV Fluids 4360 CEFAZOLIN 3G 200 LR 1960 lr 2200 Oral 0 Output: Crespo 1375 Estimated Blood Loss 100 Other: # Bowel Movements 0 Gen: appears comfortable Heart: reg Lungs: clear Abd: lap sites clean and dry; BS quiet; soft; mild incisional tenderness only UGI: done; looks ok to my eye, but reading is still pend A: s/p Lap ligia and RYGB; doing ok P: d/c Crespo; start prvain clears pend reading on the UGI.
[2018-03-29] MEDS: HYDROcodone/ACET. 7.5/325 LIQ* 15 ML UDC PO PRN ×2 (12:52→19:19)
[2018-03-29] MEDS: D5W 1/2 NS KCl 20 Meq 1000 ML* 1,000 ML IV SCH ×2 (13:11→21:15)
--- NOTE | 2018-03-29 13:15 | OP ---
OPERATIVE REPORT: DATE OF OPERATION: 03/28/18 DATE OF : 83 SURGEON: Wilbert Garcia MD. OBSTETRICIAN GYNECOLOGIST: AHSAN Byrd. ANESTHESIOLOGIST: Dr. Chan. ANESTHESIA: General anesthesia. PRE-OP DIAGNOSIS: Morbid obesity and cholelithiasis. POST-OP DIAGNOSIS: Morbid obesity and cholelithiasis. OPERATIVE PROCEDURE: Laparoscopic Darlin-en-Y gastric bypass and cholecystectomy. ESTIMATED BLOOD LOSS: Minimal, 50 cc. FLUIDS: 2200 cc of crystalloid fluid given. SPECIMEN: Gallbladder. DRAINS: None. DESCRIPTION OF PROCEDURE: The patient was identified in the preoperative area. Consent was signed. She was marked, brought to the operating room, and placed on the operating room table in a supine pos ition. Preoperative antibiotics were given. Sequential devices were placed on bilateral lower extre mities. General anesthesia was induced. Crespo catheter was inserted. The patient's abdomen was pre pped and draped in the standard surgical fashion and a time-out was performed. Folds of the umbilicus were elevated anteriorly and a Veress needle attempted to be inserted in the a bdominal cavity, this proved difficult and was abandoned. Instead we did an incision at [facility] and inserted a Veress needle successfully at this site and the abdomen insufflated to a pressure o f 15 mmHg without incident. A 12-mm trocar was then placed in the upper midline. Laparoscope was in serted through this and there was no evidence of injury from the trocar. The Veress needle had been tucked under the omentum, but there was no other evidence of injury. This was only slightly in. It was removed and then additional 12 mm trocar was inserted at the left upper quadrant. We placed a 12-mm in the right upper quadrant and a 5-mm laterally as well and another 5-mm in the wilkerson bxiphoid site. Attention was then turned towards the gallbladder, the table was positioned. The gallbladder did not appear inflamed. The fundus was grasped and elevated above the liver as best we could, given the si ze of the liver. We then identified the infundibulum as well as the common bile duct and took the pe ritoneum off the lateral aspect of the gallbladder, off the medial aspect of the gallbladder. Cystic duct was cauterized with LigaSure device and then the cystic duct was isolated. This was doubly clip ped and ligated and the gallbladder was removed from the liver bed mostly with ease, except as it blake ched the top most fundus portion; it had a little intrahepatic portion of it that was unclear. We we re able to remove this in its entirety but did enter into the gallbladder and a small amount of bile was leaked at this point. The gallbladder was then placed in an endoscopic retrieval bag and placed over the liver, brought out around the outside of the 5-mm port on the right lateral side of the abdo men to ensure that we would remove this later. We then placed a 5-mm at the left upper quadrant and another 5 mm in the right upper quadrant. Atten tion was turned towards the omentum, this was large and reflected superiorly. The transverse colon w as then identified and grasped and retracted anteriorly. There was an natural adhesion of small mónica l obscuring some of the transverse mesentry. We took this down with sharp dissection to allow us to draw the transverse colon more out of the abdomen. Once we did this, we isolated the ligament of Checo lenin easily, and counted 45 cm off the ligament of Treitz. We then transected the bowel at this site and placed an enterotomy at what would become the biliopancreatic limb. Next approximately 100 cm was counted off at the distal portion of the transection and this would bec ome the Darlin limb. We then performed another enterotomy at this site and created the jejunojejunosto my in the standard fashion with a 60-mm koehler DAYSI stapling device and reapproximated the defect with 2- 0 silk sutures in a figure-of- eight fashion and then closing the mesenteric defect in a similar fash ion. The Darlin limb as it extended towards the JJ showed some evidence of kinking; however, the calib er was maintained throughout. I did tack this more proximal portion of the Darlin limb at the JJ to th e stapled edge of the biliopancreatic limb to take a little bit of the kinking off. Attention was then turned towards the upper abdomen. The omentum was then split with a LigaSure edith ce to allow for better placement of the Darlin limb to the stomach pouch. The 5-mm trocar was removed from the subxiphoid area and a Codey retractor was inserted here and the liver was retracted anterior and to the right. Again it was a large liver, but this did expose t he gastroesophageal fat pad. There was no evidence of a hiatal hernia. We grasped the fat pads and retracted towards the right lower quadrant and both blunt and sharp disse ction was carried out to expose the left crura. Next a retrogastric tunnel was made along the lesser curvature at approximately the 3rd crossing vess el. We then utilized 60-mm koehler DAYSI stapling devices to create the stomach patch, it appeared appropr iate size, using a 45-mm koehler DAYSI stapling device in the transverse fashion and extending 60-mm up tow ards the angle of His. With the pouch made and appropriately positioned we placed an Loreto tube in by the anesthesiologist. This was placed nicely. There was no evidence of bleeding or injury to the stomach pouch. Next the Darlin limb was then brought into apposition to the gastric pouch. It was sutured with 2-0 si lk sutures. These were stay sutures at the antimesenteric portion of the small bowel and up on the s tapled edge of the lateral aspect of the pouch. Next a gastrotomy was made over the Loreto tube and an enterotomy was made with cautery. We then baudilio ed the two with a 30 mm koehler DAYSI stapling device, utilizing 2.5 cm of it. We then reapproximated the defect with 3-0 PDS suture, starting superiorly and inferiorly. The inferior sutures had some wrinkl ing in the small bowel. We tried to compensate for this with the placement of this. We ultimately t ied the sutures in the middle and then dropped the Loreto tube through the anastomosis into the proxim al Darlin limb. Next a methylene deep blue dye test was performed placing the bowel clamp distally to the Loreto tube and putting methylene blue in. It was a positive test with a small amount of blue dye exiting around the site of the small bowel anastomosis up against the gastric pouch. We then shored this up with a dditional 2-0 silk sutures, both simple sutures through the appropriate tissue layer and then another one in a mattress fashion. The methylene blue dye test was then performed until it was negative wit hout any evidence of blue dye. There was never a very robust leakage and once we had this complete w e had the anesthesiologist remove the Loreto tube and reviewed our anastomosis looking posteriorly and anteriorly. I saw no evidence of leakage. It was all intact and widely patent. The Codey retractor was removed. The table was repositioned back in neutral. Review of the abdom en showed good hemostasis. We reviewed the area of the liver; there was mild blood over the liver an d this was suctioned off with the suction catheter. We then removed the gallbladder through the [facility] t upper quadrant 12-mm port site without incident. We allowed the abdomen to collapse and then all t rocars were removed and all incisions were reapproximated with 4-0 Monocryl subcuticular sutures foll owed by Steri-Strips and sterile dressing. The patient tolerated the procedure well and was transfer red to the PACU in stable condition. [id number]/[facility] #: [id number]
[2018-03-30] MEDS: HYDROmorphone INJ1* 1 MG/ML SYRINGE IV PRN ×2 (00:14→03:39)
[2018-03-30] MEDS: Heparin VIAL(*) 5000 UNITS/ML VIAL (FIVE THOUSAND) SUBCUT SCH ×2 (05:49→14:39)
[2018-03-30] MEDS: D5W 1/2 NS KCl 20 Meq 1000 ML* 1,000 ML IV SCH (05:50)
[2018-03-30] MEDS: Famotidine IV* 10 MG/ML 2 ML (20 mg) IV SLOW PU SCH (07:49)
[2018-03-30] MEDS: HYDROcodone/ACET. 7.5/325 LIQ* 15 ML UDC PO PRN (07:49)
[2018-03-30] MEDS: Ketorolac INJ* 30 MG/ML 1 ML VIAL IV PRN (11:34)
[2018-03-30 13:35] VITALS: BP 123/74
[2018-03-31] MEDS ORDERED: Scopolamine PATCH Remove* 1 NOTE MISC PATCH OFF ONE (06:00)
--- NOTE | 2018-03-31 09:30 | DS ---
CC: Dr. Jimenez * DISCHARGE SUMMARY: DATE OF ADMISSION: 03/28/18 DATE OF DISCHARGE: 03/30/18 ATTENDING SURGEON: Dr. Wilbert Garcia.* (DICTATED BY AHSAN BROWN) HOSPITAL COURSE: Please refer to admission history and physical and operative note for details. The patient was taken to the operating room on 03/28/18, at which time she underwent laparoscopic cholecystectomy and Darlin-en-Y gastric bypass with Dr. Garcia. The patient has had an otherwise uneventful postoperative course with a normal upper GI studies in the morning of postop day 1. She was initiated on bariatric clear liquids and has gradually progressed to the required intake as of postop day 2. Her pain is well controlled with oral medications. The patient was seen on the morning of discharge by both myself and Dr. Garcia. PHYSICAL EXAMINATION: Temperature 97.9, blood pressure 120/64, pulse 66, respirations 16, room air saturation 97%. General: Well nourished, obese, and in no acute distress. Heart: Regular rate and rhythm. No murmur. Lungs: Clear to auscultation. Abdomen: Laparoscopic incision sites without evidence of infection. No active bleeding or drainage. Outer dressings were removed. Abdomen is soft with expected incisional tenderness only. IMPRESSION: Status post laparoscopic Darlin-en-Y gastric bypass with cholecystectomy, doing well; ready for discharge. PLAN: Discharge home today. Her instructions were reviewed regarding diet, activity, and wound care. She has a followup appointment already scheduled at the [facility] for Metabolic and Bariatric Surgery next week. She will resume her usual home topiramate. Instructions regarding pain medications also reviewed. AHSAN BROWN [id number]/[facility] #: [id number] MTDDeng
== END 2018-03-30 14:10 | disposition home or self-care (01) | DRG 403 ==
LOC: AA 07:22 → SSU 14:01
PROVIDERS: ADMIT Surgery; ATTEND Surgery
PROC: 0D164ZA Bypass Stomach to Jejunum, Percutaneous Endoscopic Approach (ICD-10-PCS; principal; 2018-03-28 09:15)
PROC: 0FT44ZZ Resection of Gallbladder, Percutaneous Endoscopic Approach (ICD-10-PCS; 2018-03-28 09:15)
DX: E66.01 Morbid (severe) obesity due to excess calories (principal); K80.20 Calculus of gallbladder without cholecystitis without obstruction; R11.0 Nausea; G43.909 Migraine, unspecified, not intractable, without status migrainosus; Z80.9 Family history of malignant neoplasm, unspecified; Z83.2 Family history of diseases of the blood and blood-forming organs and certain disorders involving the immune mechanism; Z68.41 Body mass index [BMI] 40.0-44.9, adult; Z88.8 Allergy status to other drugs, medicaments and biological substances; Z83.49 Family history of other endocrine, nutritional and metabolic diseases; Z87.891 Personal history of nicotine dependence
CPT/HCPCS: 43644; 47562; 74246; 81025; 88304; A9270-GY; C1776; J0690; J0780; J1100; J1170; J1644; J1885; J2250; J2405; J2704; J3010